=== PATIENT | female | born 1995 | race Caucasian/White ===

== ENCOUNTER 2017-01-24 11:53 | Emergency (ER) | payer OTHER ==
[2017-01-24 12:05] VITALS: O2SAT 98
--- NOTE | 2017-01-24 12:17 | CPEKG ---
Heart Rate: 64 RR Interval: 938 P-R Interval: 120 QRSD Interval: 80 QT Interval: 404 QTC Interval: 417 P [place]: 64 QRS [place]: 86 T Wave [place]: 48 EKG Severity - NORMAL ECG - EKG Impression: SINUS RHYTHM Electronically Signed By: Ivana Licona 24-Jan-2017 15:37:30
--- NOTE | 2017-01-24 12:37 | EDPHY ---
H & P Stated Complaint: cp x 1 week /syncopal x 2 today/nausea/flew in from [place]/ Time Seen by Provider: 01/24/17 12:33 HPI/ROS: CHIEF COMPLAINT: Fatigue chest pain HISTORY OF PRESENT ILLNESS: this is a 21-year-old female presenting to the emergency department complaining of 1-2 months with fatigue, symptoms worsen over the past 2-3 weeks while she was in [place]. patient states once she was in [place] she started having intermittent chest pain with deep inspiration, symptoms have continued be persistent. patient returned from [place] 2 days ago , increase in chest pain with deep inspiration in fatigue. no control pills no smoking no drugs, last LMP was 12/2016. patient stated she did not pass out but she felt lightheaded and dizzy with deep inspiration. Denies any chest pain at this time or shortness of breath REVIEW OF SYSTEMS: Constitutional: No fever, no chills. fatigue Eyes: No discharge. no blurred vision ENT: No sore throat. Cardiovascular: chest pain with deep breaths, no palpitations. Respiratory: No cough, intermittent shortness of breath. Gastrointestinal: No abdominal pain, no vomiting. Genitourinary: No hematuria. Musculoskeletal: No back pain. Skin: No rashes. Neurological: No headache. lightheaded and dizzy Source: Patient - Personal History LMP (Females 10-55): 22-28 Days Ago Current Tetanus Diphtheria and Acellular Pertussis (TDAP): Yes - Medical/Surgical History Hx Asthma: No Hx Chronic Respiratory Disease: No Hx Diabetes: No Hx Cardiac Disease: No Hx Renal Disease: No Hx Cirrhosis: No Hx Alcoholism: No Hx HIV/AIDS: No Hx Splenectomy or Spleen Trauma: No Other PMH: denies - Social History Smoking Status: Never smoked - Physical Exam Exam: General Appearance: Alert, no distress. HEENT: Pupils equal and round no pallor or injection. Mucous membranes moist. Respiratory: There are no retractions, lungs are clear to auscultation. Cardiovascular: Regular rate and rhythm. chest nontender on palpation Gastrointestinal: Abdomen is soft and nontender, no masses, bowel sounds normal. Neurological: No focal deficits Skin: Warm and dry, no rashes. Musculoskeletal: Neck is supple nontender. Extremities: symmetrical, full range of motion. Psychiatric: Patient is oriented X 3, there is no agitation. Constitutional: Initial Vital Signs Temperature (C) 36.7 C 01/24/17 12:01 Heart Rate 74 01/24/17 12:01 Respiratory Rate 20 01/24/17 12:01 Blood Pressure 105/80 01/24/17 12:01 O2 Sat (%) 98 01/24/17 12:01 O2 Delivery Mode Room Air Allergies/Adverse Reactions: No Known Allergies Allergy (Unverified 01/24/17 12:01) Home Medications: Medication Instructions Recorded NK [No Known Home Meds] 01/24/17 Medical Decision Making ED Course/Re-evaluation: discussed ED plan of care: CBC, BMP, D-dimer, EKG, hCG test 1315: EKG sinus rhythm 1430: Discussed all results with patient. patient states feeling better after fluids, no chest pain no shortness of breath. discussed discharge instructions with patient, patient follow up with primary care provider next week. Differential Diagnosis: Other differential diagnosis considered but not limited to EKG abnormalities, electrolyte imbalance, and PE - Data Points Laboratory Results: Laboratory Results 01/24/17 12:20 01/24/17 12:20 01/24/17 01/24/17 01/24/17 12:20 12:20 12:20 WBC RBC Hgb Hct MCV MCH MCHC RDW Plt Count MPV Neut % (Auto) Lymph % (Auto) [place] % (Auto) Eos % (Auto) Baso % (Auto) Nucleat RBC Rel Count Absolute Neuts (auto) Absolute Lymphs (auto) Absolute Monos (auto) Absolute Eos (auto) Absolute Basos (auto) Absolute Nucleated RBC Immature Gran % Immature Gran # D-Dimer 0.32 ug/mLFEU ug/mLFEU (0.00-0.50) Sodium 141 mEq/L mEq/L (134-144) Potassium 4.2 mEq/L mEq/L (3.5-5.2) Chloride 105 mEq/L mEq/L (97-110) Carbon Dioxide 19 mEq/l L mEq/l (22-31) Anion Gap 17 mEq/L H mEq/L (8-16) BUN 16 mg/dL mg/dL (7-23) Creatinine 1.0 mg/dL mg/dL (0.6-1.0) Estimated GFR > 60 Glucose 88 mg/dL mg/dL (70-100) Calcium 9.9 mg/dL mg/dL (8.5-10.4) Beta HCG, Qual NEGATIVE 01/24/17 12:20 WBC 8.42 10^3/uL 10^3/uL (3.80-9.50) RBC 4.99 10^6/uL 10^6/uL (4.18-5.33) Hgb 15.2 g/dL g/dL (12.6-16.3) Hct 45.0 % % (38.0-47.0) MCV 90.2 fL fL (81.5-99.8) MCH 30.5 pg pg (27.9-34.1) MCHC 33.8 g/dL g/dL (32.4-36.7) RDW 12.2 % % (11.5-15.2) Plt Count 282 10^3/uL 10^3/uL (150-400) MPV 10.1 fL fL (8.7-11.7) Neut % (Auto) 68.0 % % (39.3-74.2) Lymph % (Auto) 23.3 % % (15.0-45.0) [place] % (Auto) 5.5 % % (4.5-13.0) Eos % (Auto) 2.3 % % (0.6-7.6) Baso % (Auto) 0.7 % % (0.3-1.7) Nucleat RBC Rel Count 0.0 % % (0.0-0.2) Absolute Neuts (auto) 5.73 10^3/uL 10^3/uL (1.70-6.50) Absolute Lymphs (auto) 1.96 10^3/uL 10^3/uL (1.00-3.00) Absolute Monos (auto) 0.46 10^3/uL 10^3/uL (0.30-0.80) Absolute Eos (auto) 0.19 10^3/uL 10^3/uL (0.03-0.40) Absolute Basos (auto) 0.06 10^3/uL 10^3/uL (0.02-0.10) Absolute Nucleated RBC 0.00 10^3/uL 10^3/uL (0-0.01) Immature Gran % 0.2 % % (0.0-1.1) Immature Gran # 0.02 10^3/uL 10^3/uL (0.00-0.10) D-Dimer Sodium Potassium Chloride Carbon Dioxide Anion Gap BUN Creatinine Estimated GFR Glucose Calcium Beta HCG, Qual Departure - Departure Disposition: Home, Routine, Self-Care Clinical Impression: Fatigue Qualifiers: Fatigue type: unspecified Qualified Code(s): R53.83 - Other fatigue Condition: Good Instructions: Fatigue (ED) Additional Instructions: 1. Increased rest, fluid intake 2. I would recommend no alcohol or marijuana. increase dietary nutrition 3. staying hydrated, getting plenty of rest 4. follow up with your primary care provider this week Referrals: SHERITA CARO [Other] - As per Instructions
[2017-01-24 13:50] LABS: % IMMATURE GRANULYOCYTES 0.2 % (0.0-1.1); ABSOLUTE IMMATURE GRANULOCYTES 0.02 10^3/uL (0.00-0.10); ADD DIFF? NO; ADD MORPH? NO; ADD SCAN? NO; ATYPICAL LYMPHOCYTE FLAG 20 (0-99); FRAGMENT RBC FLAG 0 (0-99); HEMOGLOBIN 15.2 g/dL (12.6-16.3); LEFT SHIFT FLG 0 (0-99); LIPEMIA HEMOLYSIS FLAG 90 (0-99); MEAN CELL HEMOGLOBIN 30.5 pg (27.9-34.1); MEAN CELL HEMOGLOBIN CONCENTR. 33.8 g/dL (32.4-36.7); MEAN CELL VOLUME 90.2 fL (81.5-99.8); MEAN PLATELET VOLUME 10.1 fL (8.7-11.7); PLATELET CLUMPS FLAG 10 (0-99); PLATELET COUNT 282 10^3/uL (150-400); RED BLOOD CELL COUNT 4.99 10^6/uL (4.18-5.33); RED CELL DISTRIBUTION WIDTH 12.2 % (11.5-15.2)
[2017-01-24 14:00] LABS: ANION GAP 17 mEq/L (8-16); CALCIUM 9.9 mg/dL (8.5-10.4); CARBON DIOXIDE 19 mEq/l (22-31); CHLORIDE 105 mEq/L (97-110); GLOMERULAR FILTRATION RATE > 60; GLUCOSE 88 mg/dL (70-100); POTASSIUM 4.2 mEq/L (3.5-5.2); SODIUM 141 mEq/L (134-144)
[2017-01-24 14:48] VITALS: BP 106/67; PULSE 60; RESP 14; TEMP 97.5
== END 2017-01-24 14:54 | disposition home or self-care (01) ==
DX: R53.83 Other fatigue (principal)

== ENCOUNTER → 2017-10-01 | Outpatient (CLI) | payer OTHER | LOC: FIMAGING 13:36 | PROVIDERS: ATTEND Registered Nurse | DX: N64.4 Mastodynia (principal) ==

== ENCOUNTER → 2017-12-11 | Outpatient (CLI) | payer OTHER | LOC: FCPNEURO 20:00 | PROVIDERS: ATTEND Internal Medicine Sleep Medicine | DX: G47.33 Obstructive sleep apnea (adult) (pediatric) (principal) ==